=== PATIENT | male | born 1985 | race Hispanic/Latino ===

== ENCOUNTER 2019-03-12 02:41 | Emergency (ER) | payer OTHER ==
[2019-03-12] MEDS ORDERED: KETOROLAC 30 MG/1 ML INJ IV ONE (02:57)
[2019-03-12] MEDS ORDERED: MORPHINE 4 MG/1 ML INJ IV ONE (02:57)
[2019-03-12 03:02] VITALS: BP 152/99
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
== END 2019-03-12 05:51 | disposition home or self-care (01) ==
LOC: ED 02:41
DX: S46.001A Unspecified injury of muscle(s) and tendon(s) of the rotator cuff of right shoulder, initial encounter (principal); I10 Essential (primary) hypertension; Z90.89 Acquired absence of other organs; Z79.899 Other long term (current) drug therapy; W19.XXXA Unspecified fall, initial encounter; Y93.89 Activity, other specified; Y92.89 Other specified places as the place of occurrence of the external cause; Y99.8 Other external cause status
CPT/HCPCS: 29505; 73030; 96374; 96375; 99283; J1885; J2270

== ENCOUNTER 2020-05-20 18:44 | Emergency (ER) | payer OTHER ==
[2020-05-20 19:22] VITALS: BP 149/104
[2020-05-20] MEDS ORDERED: DIPHtheria,PERTUSSIS(ACELL),TETANUS VACCINE/PF 0.5 ML VIAL IM ONE (19:27)
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
== END 2020-05-20 20:05 | disposition home or self-care (01) ==
LOC: ED 18:44
DX: H57.89 Other specified disorders of eye and adnexa (principal); I10 Essential (primary) hypertension; E11.9 Type 2 diabetes mellitus without complications; Z90.89 Acquired absence of other organs; Z98.890 Other specified postprocedural states; Z79.1 Long term (current) use of non-steroidal anti-inflammatories (NSAID); Z79.2 Long term (current) use of antibiotics; Z79.899 Other long term (current) drug therapy; Y09 Assault by unspecified means
CPT/HCPCS: 90471; 90715; 99282